=== PATIENT | male | born 1955 | race Caucasian/White ===

== ENCOUNTER → 2016-05-14 | Outpatient (CLI) | payer BC, MEDICARE ==
[~2016-05-14] MED LIST: ALBU8.5H4 IH; ASPI-586; BENZ-24; LEVO750T39 PO
[2016-05-14 07:53] LABS: BASOPHILS % (AUTO) 1 % (0-2); EOSINOPHILS # (AUTO) 0.2 10^3uL; EOSINOPHILS % (AUTO) 2 % (0-4); LYMPHOCYTES # (AUTO) 2.5 X10^3; MEAN CORPUSCULAR HGB CONC 34.9 g/dL (31.0-37.0); MEAN CORPUSCULAR VOLUME 83 FL (80-100); MONOCYTES # (AUTO) 0.6 X10^3; MONOCYTES % (AUTO) 7 % (3-11); NEUTROPHILS # (AUTO) 5.4 X10^3; NEUTROPHILS % (AUTO) 62 % (51-67); PLATELET COUNT 229 10^3uL (150-450); WHITE BLOOD COUNT 8.73 10^3uL (4.0-11.0)
[2016-05-14 08:11] LABS: ALBUMIN 4.5 g/dL (3.4-5.0); ALKALINE PHOSPHATASE 89 U/L (38-126); ANION GAP 18.6 MEQ/L (3-15); BUN/CREATININE RATIO 27 (10-20); CALCULATED IONIZED CALCIUM 4.1 mg/dL (3.8-4.6); TOTAL PROTEIN 7.6 g/dL (6.4-8.5)
--- NOTE | 2016-05-14 08:40 | Diagnostic Imaging Report ---
INDICATION: Dyspnea. DISCUSSION: Two views of the chest were obtained, comparison 05/19/2015. Mild eventration of right hemidiaphragm is stable. Stable normal heart size. Median sternotomy is again noted. No focal consolidation, pleural fluid, or pneumothorax. Age-related degenerative changes are noted throughout the thoracic spine. IMPRESSION: 1. Stable negative chest. Dictated by: Dictated on workstation # [id number]
== END ==
LOC: LAB 07:26
PROVIDERS: ATTEND Family Medicine
DX: Z00.00 Encounter for general adult medical examination without abnormal findings (principal); Z12.5 Encounter for screening for malignant neoplasm of prostate
CPT/HCPCS: 36415; 71020; 80053; 80061; 82306; 83036; 84153; 84443; 85025; 93005

== ENCOUNTER → 2016-08-06 | Outpatient (CLI) | payer BC ==
[2016-08-06 09:22] LABS: ANION GAP 17.9 MEQ/L (3-15); MAGNESIUM* 2.1 mg/dL (1.6-2.3)
== END ==
LOC: LAB 07:19
PROVIDERS: ATTEND Family Medicine
DX: E83.42 Hypomagnesemia (principal); R79.89 Other specified abnormal findings of blood chemistry
CPT/HCPCS: 36415; 80048; 83735